=== PATIENT | male | born 1960 | race Asian ===

== ENCOUNTER 2022-12-29 18:28 | Emergency (ER) | payer OTHER ==
[~2022-12-29] VITALS: Ht 175.3 cm; Wt 75.7 kg
[2022-12-29] MEDS ORDERED: MORPHINE SULFATE 4 MG/1 ML DISP.SYRIN IV ONE (18:45)
[2022-12-29] MEDS ORDERED: ONDANSETRON 4 MG/2 ML VIAL IV ONE (18:45)
[2022-12-29 18:47] LABS: HEMATOCRIT 49.1 % (36.7-47.1); MEAN CORPUSCULAR HEMOGLOBIN 33.1 uug (23.8-33.4); MEAN CORPUSCULAR VOLUME 99.2 fL (73.0-96.2); PLATELET COUNT (AUTO) 233 K/uL (152-348)
--- NOTE | 2022-12-29 18:55 | NUR ---
Offered patient pain medication and antinausea medication; however patient states he is not currently in pain nor nauseous. Patient declined medication for now.
[2022-12-29] MEDS ORDERED: LISI-782 PO (18:58)
[2022-12-29] MEDS ORDERED: SIMV10TA98 PO (18:58)
[2022-12-29] MEDS ORDERED: ALLO100T PO (18:58)
--- NOTE | 2022-12-29 19:03 | NUR ---
Received report from Tonia SWANN.
[2022-12-29 19:04] LABS: BILIRUBIN,TOTAL 0.6 mg/dL (0.2-1.0); CREATININE 1.2 mg/dL (0.6-1.3); POTASSIUM 4.5 mmol/L (3.5-5.1); TOTAL PROTEIN, SERUM 7.7 g/dL (6.4-8.2)
[2022-12-29] MEDS ORDERED: IV NORMAL SALINE 500 ML BAG IV ONE (19:30)
[2022-12-29] MEDS ORDERED: TAMSULOSIN HCL 0.4 MG CAP.SR.24H ONE (19:58)
[2022-12-29] MEDS ORDERED: TAMSULOSIN HCL 0.4 MG CAP.SR.24H PO ONE (20:00)
--- NOTE | 2022-12-29 20:03 | NUR ---
Patient stated that they are not in pain and did not want IV fluids. Patient's is at bedside.
[2022-12-29 20:34] LABS: *BILIRUBIN,URIN NEGATIVE (NEGATIVE); *BLOOD, URINE 2+ (NEGATIVE); *CLARITY,URINE CLEAR (CLEAR); *COLOR,URINE YELLOW (YELLOW); *KETONES,URINE NEGATIVE (NEGATIVE); *UROBILINOGEN,URINE 0.2 E.U./dl (NORMAL); LEUKOCYTE ESTERASE ,URINE NEGATIVE (NEGATIVE); NITRITE, URINE NEGATIVE (NEGATIVE); UGLUCOSE NEGATIVE (NEGATIVE)
[2022-12-29 20:59] LABS: RBC,URINE 20-50 /HPF (0-3); WBC,URINE 0-3 /HPF (0-3)
[2022-12-29 21:00] LABS: BACTERIA,URINE FEW /HPF (NONE SEEN); SQUAMOUS EPITHELIAL CELL,UR FEW /HPF (NONE SEEN)
[2022-12-29] MEDS ORDERED: CEFU500T66 PO (21:05)
[2022-12-29] MEDS ORDERED: TAMS-3 PO (21:06)
[2022-12-29] MEDS ORDERED: HYDR-3980 PO (21:06)
== END 2022-12-29 21:08 | disposition home or self-care (01) ==
LOC: ER 18:35
DX: N13.2 Hydronephrosis with renal and ureteral calculous obstruction (principal); E78.5 Hyperlipidemia, unspecified; M10.9 Gout, unspecified; I10 Essential (primary) hypertension; Z79.899 Other long term (current) drug therapy
CPT/HCPCS: 99285; 74176; 80053; 81001; 85025; 84484; 36415; 93005; J7040; A4663